=== PATIENT | female | born 1950 | race Caucasian/White ===

== ENCOUNTER 2017-09-03 12:51 | Outpatient (CLI) | payer MEDICARE | END 2017-09-03 23:59 | disposition home or self-care (01) | LOC: VAS 12:51 | PROVIDERS: ATTEND Pediatrics Sports Medicine | DX: I82.401 Acute embolism and thrombosis of unspecified deep veins of right lower extremity (principal); M25.552 Pain in left hip; M79.1 Myalgia; M47.812 Spondylosis without myelopathy or radiculopathy, cervical region; M51.37 Other intervertebral disc degeneration, lumbosacral region; M54.2 Cervicalgia; M54.41 Lumbago with sciatica, right side; M25.512 Pain in left shoulder; M75.42 Impingement syndrome of left shoulder | CPT/HCPCS: 93971 ==

== ENCOUNTER 2023-04-16 10:43 | Observation (INO) | payer MEDICARE, BC ==
[2023-04-09 15:11] LABS: BASOPHILS # (AUTO) 0.1 X10'3 (0-0.2); BASOPHILS % (AUTO) 1.3 % (0-1); EOSINOPHILS # (AUTO) 0.2 X10'3 (0-0.9); EOSINOPHILS % (AUTO) 1.9 % (0-6); LYMPHOCYTES # (AUTO) 2.5 X10'3 (1.1-4.8); LYMPHOCYTES % (AUTO) 24.2 % (21-51); MEAN CORPUSCULAR HEMOGLOBIN 32.3 PG (27.0-31.0); MEAN CORPUSCULAR HGB CONC 33.9 g/dL (33.0-36.5); MEAN CORPUSCULAR VOLUME 95.3 FL (78-98); MEAN PLATELET VOLUME 9.1 FL (7.4-10.4); MONOCYTES # (AUTO) 0.9 X10'3 (0-0.9); MONOCYTES % (AUTO) 8.4 % (2-12); NEUTROPHILS # (AUTO) 6.6 X10'3 (1.8-7.7); NEUTROPHILS % (AUTO) 64.2 % (42-75); PRE OP HEMATOCRIT 41.4 % (35.0-45.0); PRE OP PLATELET COUNT 445 X10'3 (140-440); PRE OP WHITE BLOOD COUNT 10.3 10'3 (4.8-10.8); RED BLOOD COUNT 4.34 X10'6 (4.20-5.60)
[2023-04-09 15:17] LABS: ALBUMIN 3.6 G/DL (3.4-5.0); ALBUMIN/GLOBULIN RATIO 0.9 (1.1-1.5); ALKALINE PHOSPHATASE 88 IU/L (46-116); BLOOD UREA NITROGEN 23 MG/DL (7-18); BUN/CREATININE RATIO 27.7 (10.0-20.0); CALCIUM 9.6 MG/DL (8.5-10.1); CHLORIDE 101 MMOL/L (99-107); CREATININE 0.83 MG/DL (0.40-0.90); PRE OP ALT 28 U/L (30-65); PRE OP ANION GAP 8 (8-16); PRE OP AST 29 U/L (10-37); PRE OP BILIRUB, TOTAL 0.5 MG/DL (0.0-1.0); PRE OP GLUCOSE 96 MG/DL (70-104); PRE OP POTASSIUM 3.5 MMOL/L (3.4-5.1); PRE OP SODIUM 137 MMOL/L (135-145); TOTAL CARBON DIOXIDE 27.9 MMOL/L (24-32); TOTAL PROTEIN 7.8 G/DL (6.4-8.2); eGFR 68 ML/MIN
[~2023-04-16] VITALS: Ht 165.1 cm; Wt 76.5 kg
[2023-04-16] VITALS (19 sets, daily range): BP systolic 110–161; BP diastolic 51–107; PULSE 82–110; RESP 15–22; TEMP 97.5–98.3; O2SAT 96–99
[~2023-04-16 10:43] MED LIST: ATOR10TA70 PO; CYCL-1 PO; DENO60DI SUBCUT; ESOM40CA54 PO; ESTR0.5T29 PO; HYDR-3717 PO; HYDR-3973 PO; HYDR12.55 PO; LEVO50TA8 PO; LOSA50TA64 PO; MELO-102 PO; cefazolin 2gm/D5W 100mL 100 ML IV ONE; famotidine 20mg tablet PO ONE; ringers solution, lacted 1,000 ML IV SCH
[2023-04-16] MEDS ORDERED: ondansetron/PF 4mg/2ml inj ONE ×2 (13:32→16:11)
[2023-04-16] MEDS ORDERED: sevoflurane 250ml liquid IH ONE (13:32)
[2023-04-16] MEDS ORDERED: fentaNYL/PF 50MCG/1 ML 2ML syringe ONE (13:45)
[2023-04-16] MEDS ORDERED: midazolam 1 mg/ML 2ml injection ONE (13:45)
[2023-04-16] MEDS ORDERED: propofol inj 20 ML IV ONE (13:49)
[2023-04-16] MEDS ORDERED: LIDOcaine 2% (20mg/ml) 5ml vial ONE (13:49)
[2023-04-16] MEDS ORDERED: rocuronium 10mg/ml inj IV ONE (13:49)
[2023-04-16] MEDS ORDERED: LIDOcaine 1% 30ml preserv. free vial ONE (13:52)
[2023-04-16] MEDS ORDERED: BUPIVAcaine/PF 2.5mg/ml (0.25%) 10ml vial ONE (13:52)
[2023-04-16] MEDS ORDERED: ketorolac trometh. 30mg/ml inj. IV ONE (14:00)
[2023-04-16] MEDS ORDERED: morphine 2 MG/ML inj. syringe IV PRN (14:00)
[2023-04-16] MEDS ORDERED: labetalol 20mg/4ml (5mg/ml) syringe IV PRN (14:00)
[2023-04-16] MEDS ORDERED: meperidine/PF 25mg/ml syringe IV PRN ×3 (14:00)
[2023-04-16] MEDS ORDERED: ringers solution, lacted 1,000 ML IV SCH (14:00)
[2023-04-16] MEDS ORDERED: ondansetron/PF 4mg/2ml inj IV PRN ×2 (14:00→16:25)
[2023-04-16] MEDS ORDERED: proCHLORperazine 10 MG/2 ml inj IV PRN (14:00)
[2023-04-16] MEDS ORDERED: enalaprilat dihydrate 2.5mg/2ml vial IV PRN (14:00)
[2023-04-16] MEDS ORDERED: morphine 4 MG/ML inj SYRINge IV PRN (14:00)
[2023-04-16] MEDS ORDERED: acetaminophen 1,000mg/100ml IV 100 ML IV ONE (16:02)
[2023-04-16] MEDS ORDERED: morphine 10mg/ml inj. ONE (16:02)
[2023-04-16] MEDS ORDERED: sugammadex 200mg/2ml injection IV ONE (16:19)
[2023-04-16] MEDS ORDERED: glycopyrrolate 0.2mg/ml inj ONE (16:23)
[2023-04-16] MEDS ORDERED: neostigmine methylsulfate 1 MG/ML 10ml vial ONE (16:23)
[2023-04-16] MEDS ORDERED: naloxone 0.4 mg/ml inj IV PRN (16:25)
[2023-04-16] MEDS ORDERED: normal saline 1000ml 1,000 ML IV SCH (16:25)
--- NOTE | 2023-04-16 16:28 | NUR ---
Received from OR via SURGICAL BED , accompanied by Anesthesiologist STEFAN and report given by Anesthesiolgist. PATIENT WITH 5 LAP SITES TO ABDOMEN THAT ARE CDI. PATIENT DENIES PAIN AT THIS TIME. PATIENT WITH 10L MASK ON WITH 98% SATURATIONS. SCDS DONNED. 20G PIV IN RIGHT UE RUNNING LR AT 100. WILL CONTINUE TO ASSESS AND TREAT FOR PAIN NEEDED. Addendum: 04/16/23 at 1642 by Richard Nino RN, RN Amended: Links added.
[2023-04-16] MEDS: HYDROmorph/NS 0.2 mg/ml PCA 100 ML IV SCH ×5 (17:00→23:00)
--- NOTE | 2023-04-16 17:20 | NUR ---
Patient in room . I have received report from jorden villar in recovery and had the opportunity to ask questions and assume patient care.
--- NOTE | 2023-04-16 17:45 | NUR ---
pt is stable, pt arrived to the floor by recovery nurse, post op vitals set up and first set entered, pt has not used CADD pump yet, the lap sites are CDI, pt is only in mild pain but otherwise feels ok with some abd soreness. will give report to night nurse at 1800 and they will take over care.
--- NOTE | 2023-04-16 17:48 | NUR ---
ALL CRITERIA FOR TRANSFER BACK TO PATIENT ROOM HAS BEEN MET. VSS. PAIN AT A TOLERABLE LEVEL AND DRESSINGS SAME UPON ARRIVAL. REPORT GIVEN AND ALL QUESTIONS ANSWERED. RN PRESENT OR AWARE THAT PATIENT HAS ARRIVED. BED LOW. CALL LIGHT PRESENT. 2 RAILS UP. CARE TURNED OVER TO RN FOLLOWING REPORT. 2 BAGS OF BELONGINGS WITH PATIENT AND SON PUT THEM IN THE CLOSET. [facility] RN AWARE THAT PATIENT HAS ARRIVED AND WILL ASSESS PATIENT. PATIENT HAS NO C.O AT THIS TIME. VSS SET UP Addendum: 04/16/23 at 1800 by Richard Nino RN RN Amended: Links added.
--- NOTE | 2023-04-16 18:40 | NUR ---
Problems reprioritized. Patient report given, questions answered & plan of care reviewed with Phani BARRAGAN.
[2023-04-16] MEDS ORDERED: albuterol 2.5 MG/3 ML nebule NEB SCH (19:00)
[2023-04-16] MEDS ORDERED: cyclobenzaprine 10mg tablet PO SCH (21:00)
[2023-04-16] MEDS ORDERED: hydrOXYzine 10 MG tablet PO SCH (21:00)
--- NOTE | 2023-04-16 22:38 | NUR ---
Noted that the small toes on both feet are turned in and almost cross over her foot.
[2023-04-16] MEDS: docusate sod 100mg capsule PO SCH (23:46)
[2023-04-16] MEDS: sennosides/docusate sodium tablet PO SCH (23:47)
[2023-04-17] MEDS: HYDROmorph/NS 0.2 mg/ml PCA 100 ML IV SCH ×3 (01:00→05:00)
[2023-04-17 02:00] VITALS: BP 103/150; PULSE 97; RESP 17; TEMP 97.8; O2SAT 96
[2023-04-17 06:48] VITALS: BP 113/67; PULSE 109; RESP 17; TEMP 98.2; O2SAT 95
[2023-04-17] MEDS ORDERED: levoTHYROXINE 25mcg tablet PO SCH (07:00)
[2023-04-17 08:00] VITALS: RESP 18; O2SAT 98
[2023-04-17] MEDS ORDERED: MELOXICAM 7.5 MG TABLET PO SCH (08:00)
[2023-04-17] MEDS ORDERED: HYDROchlorothiazide 12.5mg capsule PO SCH (08:00)
[2023-04-17] MEDS ORDERED: atorvastatin 10mg tablet PO SCH (08:00)
[2023-04-17] MEDS ORDERED: enoxaparin 40mg/0.4ml syringe SQ SCH (08:00)
[2023-04-17] MEDS ORDERED: losartan 50mg tablet PO SCH (08:00)
[2023-04-17] MEDS ORDERED: oxyCODONE/APAP 5-325mg tablet PO PRN (08:25)
[2023-04-17 08:30] VITALS: BP_SYST 115; PULSE 64
[2023-04-17] MEDS: sennosides/docusate sodium tablet PO SCH (08:30)
[2023-04-17] MEDS: docusate sod 100mg capsule PO SCH (08:30)
[2023-04-17 11:54] VITALS: RESP 16
[2023-04-17] MEDS ORDERED: PER5325T PO (12:49)
--- NOTE | 2023-04-17 14:20 | NUR ---
pT DISCHARGED HOME WITH ALL BELONGINGS AND IN STABLE CONDITION
[2023-04-17] MEDS ORDERED: PCA WASTE DOCUMENTATION 1 MG ML MC ONE (14:25)
== END 2023-04-17 14:10 | disposition home or self-care (01) ==
LOC: PAS 10:43 → ORTHO 4S 16:28
PROVIDERS: ADMIT Surgery; ATTEND Surgery
DX: K44.9 Diaphragmatic hernia without obstruction or gangrene (principal); K29.70 Gastritis, unspecified, without bleeding; K25.9 Gastric ulcer, unspecified as acute or chronic, without hemorrhage or perforation; K21.9 Gastro-esophageal reflux disease without esophagitis; J44.9 Chronic obstructive pulmonary disease, unspecified; I10 Essential (primary) hypertension; E03.9 Hypothyroidism, unspecified; M19.90 Unspecified osteoarthritis, unspecified site; Z88.0 Allergy status to penicillin; Z79.899 Other long term (current) drug therapy
CPT/HCPCS: 36415; 43239; 43282; 71045; 80053; 82948; 85025; 93005; 96365; 96366; 96372; 96375; C1781; G0378; J0131; J0690; J1170; J1650; J1885; J2250; J2274; J2405; J2704; J2710; J3010; J3490; J7030; J7120; 43193; A4615; A4618

== ENCOUNTER 2023-08-07 12:41 | Outpatient (CLI) | payer MEDICARE, BC ==
[~2023-08-07 12:41] MED LIST changes: -ESOM40CA54 PO; -HYDR-3973 PO; +PER5325T PO; -cefazolin 2gm/D5W 100mL 100 ML IV ONE; -famotidine 20mg tablet PO ONE; -ringers solution, lacted 1,000 ML IV SCH
== END 2023-08-07 23:59 | disposition home or self-care (01) ==
LOC: RAD 12:41
PROVIDERS: ATTEND Surgery
DX: Q40.1 Congenital hiatus hernia (principal); I25.10 Atherosclerotic heart disease of native coronary artery without angina pectoris; I51.7 Cardiomegaly
CPT/HCPCS: 71250